=== PATIENT | male | born 1965 | race African-American/Black ===

== ENCOUNTER 2016-12-09 12:48 | Inpatient (IN) | payer OTHER ==
[2016-12-09 14:49] VITALS: BMI 22.3
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
[2016-12-09] MEDS ORDERED: MENTHOL/PHENOL 1 EACH UD MM PRN (17:18)
[2016-12-09] MEDS ORDERED: chlordiazePOXIDE HCL 25 MG CAPSULE PO PRN (17:18)
[2016-12-09] MEDS ORDERED: MAGNESIUM CITRATE 300 ML BOTTLE PO PRN (17:18)
[2016-12-09] MEDS ORDERED: NICOTINE POLACRILEX 2 MG GUM BC PRN (17:18)
[2016-12-09] MEDS ORDERED: MAGNESIUM HYDROX 2400MG/30ML ORAL SUSPENSION 30 ML CUP PO PRN (17:18)
[2016-12-09] MEDS ORDERED: ACETAMINOPHEN 325 MG TABLET (FP) PO PRN (17:18)
[2016-12-09] MEDS ORDERED: guaiFENesin/D-METHORPHAN HB 10 ML UNIT-DOSE CUPS PO PRN (17:18)
[2016-12-09] MEDS ORDERED: MAG HYDROX/AL HYDROX/SIMETH 30 ML UNIT-DOSE CUP PO PRN (17:18)
[2016-12-09] MEDS ORDERED: LOPERAMIDE HCL 2 MG CAPSULE PO PRN (17:18)
[2016-12-09] MEDS ORDERED: P-EPHED 60MG/TRIPROLIDI 2.5MG TABLET PO PRN (17:18)
[2016-12-09] MEDS ORDERED: ALBUTEROL SO4 18 GM HFA INHALER IH PRN (17:20)
[2016-12-09] MEDS ORDERED: ALBUTEROL SO4 2.5/IPRATROPIUM 0.5 INH SOL 3 ML VIAL.NEB. NEB PRN (17:29)
[2016-12-09] MEDS: THIAMINE HCL 100 MG TABLET (FP) PO SCH (22:33)
[2016-12-09] MEDS: chlordiazePOXIDE HCL 25 MG CAPSULE PO SCH (22:33)
[2016-12-09 23:27] LABS: URINE APPEARANCE SLCLOUDY; URINE BILIRUBIN NEGATIVE (NEGATIVE); URINE BLOOD NEGATIVE (NEGATIVE); URINE COLOR DKYELLOW; URINE GLUCOSE (UA) NEGATIVE (NEGATIVE); URINE KETONE NEGATIVE (NEGATIVE); URINE NITRITE NEGATIVE (NEGATIVE); URINE PROTEIN NEGATIVE (NEGATIVE); URINE UROBILINOGEN 4.0 E.U/dl mg/dL (0.2-1.0)
[2016-12-10] MEDS: chlordiazePOXIDE HCL 25 MG CAPSULE PO SCH ×4 (06:05→22:05)
[2016-12-10 10:16] LABS: MCHC 32.5 g/dl (32.0-35.9); MEAN CELL VOLUME 86.3 fl (80-96); MEAN PLT VOLUME 9.7 fl (7.5-11.1); PLATELET COUNT 135 K/MM3 (134-434); WHITE BLOOD COUNT 3.6 K/mm3 (4.0-10.0)
[2016-12-10 10:29] LABS: ALBUMIN 2.9 g/dl (3.4-5.0); ANION GAP 7 (8-16); BILIRUBIN,TOTAL 0.2 mg/dL (0.2-1.0); CALCIUM 8.1 mg/dL (8.5-10.1); CO2 27 mmol/L (21-32); CREATININE 1.1 mg/dL (0.7-1.3); GLUCOSE,RANDOM 103 mg/dL (74-106); SGOT/AST 27 U/L (15-37); SGPT/ALT 20 U/L (12-78); TOT PROT 7.6 g/dl (6.4-8.2)
[2016-12-10 10:30] LABS: ALK PHOS 91 U/L (45-117)
[2016-12-10] MEDS: NICOTINE 14 MG/24 HOURS TOPICAL PATCH TD SCH (11:20)
[2016-12-10] MEDS: PRENATAL VITAMINS W/ FOLIC ACID TABLET (FP) PO SCH (11:20)
[2016-12-10] MEDS ORDERED: FLU VACCINE QUAD 60 MCG/0.5 ML (MDV 17-18) IM ONE (12:00)
[2016-12-10 12:04] LABS: URINE LEUK ESTERASE Negative (NEGATIVE)
--- NOTE | 2016-12-10 14:36 | PN ---
S CIWA - CIWA Score Nausea/Vomitin-No Nausea/No Vomiting Muscle Tremors: 3 Anxiety: 4-Mod. Anxious/Guarded Agitation: 4-Moderately Restless Paroxysmal Sweats: 3 Orientation: 0-Oriented Tacttile Disturbances: 0-None Auditory Disturbances: 0-None Visual Disturbances: 0-None Headache: 0-None Present CIWA-Ar Total Score: 14 BHS Progress Note (SOAP) Subjective: Sweating,anxiety,tremors,restless,interrupted sleep. Objective: 12/10/16 14:34 Last Vital Signs Temp Pulse Resp BP Pulse Ox 97.9 F 106 H 18 117/69 12/10/16 06:00 12/10/16 06:00 12/10/16 06:00 12/10/16 06:00 Laboratory Tests 12/09/16 12/10/16 12/10/16 22:00 07:55 07:55 WBC 3.6 L RBC 4.62 Hgb 13.0 Hct 39.9 MCV 86.3 MCH 28.0 MCHC 32.5 RDW 14.0 Plt Count 135 D MPV 9.7 D Sodium 143 Potassium 3.9 Chloride 109 H Carbon Dioxide 27 Anion Gap 7 L BUN 17 Creatinine 1.1 D Creat Clearance w eGFR > 60 Random Glucose 103 Calcium 8.1 L Total Bilirubin 0.2 D AST 27 D ALT 20 D Alkaline Phosphatase 91 Total Protein 7.6 Albumin 2.9 L Urine Color Dkyellow Urine Appearance Slcloudy Urine pH 6.0 Ur Specific [place] 1.030 Urine Protein Negative Urine Glucose (UA) Negative Urine Ketones Negative Urine Blood Negative Urine Nitrite Negative Urine Bilirubin Negative Urine Urobilinogen 4.0 e.u/dl Ur Leukocyte Esterase Negative Valproic Acid RPR Titer 12/10/16 12/10/16 07:55 07:55 WBC RBC Hgb Hct MCV MCH MCHC RDW Plt Count MPV Sodium Potassium Chloride Carbon Dioxide Anion Gap BUN Creatinine Creat Clearance w eGFR Random Glucose Calcium Total Bilirubin AST ALT Alkaline Phosphatase Total Protein Albumin Urine Color Urine Appearance Urine pH Ur Specific [place] Urine Protein Urine Glucose (UA) Urine Ketones Urine Blood Urine Nitrite Urine Bilirubin Urine Urobilinogen Ur Leukocyte Esterase Valproic Acid 16.450 L RPR Titer Nonreactive labs noted,psych to f/u on valproic acid level Assessment: 12/10/16 14:36 Withdrawal sx. Plan: Continue detox
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
[2016-12-10] MEDS: DIVALPROEX SODIUM 500 MG TABLET E.C. PO SCH (22:05)
[2016-12-10] MEDS: THIAMINE HCL 100 MG TABLET (FP) PO SCH (22:05)
[2016-12-11] MEDS: chlordiazePOXIDE HCL 25 MG CAPSULE PO SCH ×3 (06:10→18:13)
[2016-12-11] MEDS: IBUPROFEN 400 MG TABLET (FP) PO PRN (06:10)
[2016-12-11] MEDS: PRENATAL VITAMINS W/ FOLIC ACID TABLET (FP) PO SCH (10:11)
[2016-12-11] MEDS: DIVALPROEX SODIUM 500 MG TABLET E.C. PO SCH ×2 (10:11→22:40)
[2016-12-11] MEDS: NICOTINE 14 MG/24 HOURS TOPICAL PATCH TD SCH (10:12)
--- NOTE | 2016-12-11 14:15 | PN ---
S CIWA - CIWA Score Nausea/Vomitin-No Nausea/No Vomiting Muscle Tremors: 3 Anxiety: 3 Agitation: 3 Paroxysmal Sweats: 3 Orientation: 1-Uncertain about Date Tacttile Disturbances: 0-None Auditory Disturbances: 0-None Visual Disturbances: 0-None Headache: 0-None Present CIWA-Ar Total Score: 13 BHS Progress Note (SOAP) Subjective: Anxiety,tremors,sweating,interrupted sleep,restless Objective: 12/11/16 14:14 Vital Signs - 8 hr 12/11/16 12/11/16 07:18 10:00 Temperature 98.1 F 97.6 F Pulse Rate 96 H Respiratory 18 Rate Blood Pressure 114/79 Laboratory Tests 12/09/16 12/10/16 12/10/16 22:00 07:55 07:55 WBC 3.6 L RBC 4.62 Hgb 13.0 Hct 39.9 MCV 86.3 MCH 28.0 MCHC 32.5 RDW 14.0 Plt Count 135 D MPV 9.7 D Sodium 143 Potassium 3.9 Chloride 109 H Carbon Dioxide 27 Anion Gap 7 L BUN 17 Creatinine 1.1 D Creat Clearance w eGFR > 60 Random Glucose 103 Calcium 8.1 L Total Bilirubin 0.2 D AST 27 D ALT 20 D Alkaline Phosphatase 91 Total Protein 7.6 Albumin 2.9 L Urine Color Dkyellow Urine Appearance Slcloudy Urine pH 6.0 Ur Specific [place] 1.030 Urine Protein Negative Urine Glucose (UA) Negative Urine Ketones Negative Urine Blood Negative Urine Nitrite Negative Urine Bilirubin Negative Urine Urobilinogen 4.0 e.u/dl Ur Leukocyte Esterase Negative Valproic Acid RPR Titer 12/10/16 12/10/16 07:55 07:55 WBC RBC Hgb Hct MCV MCH MCHC RDW Plt Count MPV Sodium Potassium Chloride Carbon Dioxide Anion Gap BUN Creatinine Creat Clearance w eGFR Random Glucose Calcium Total Bilirubin AST ALT Alkaline Phosphatase Total Protein Albumin Urine Color Urine Appearance Urine pH Ur Specific [place] Urine Protein Urine Glucose (UA) Urine Ketones Urine Blood Urine Nitrite Urine Bilirubin Urine Urobilinogen Ur Leukocyte Esterase Valproic Acid 16.450 L RPR Titer Nonreactive labs noted Assessment: 12/11/16 14:15 Withdrawal sx. Plan: Continue detox
[2016-12-11] MEDS: chlordiazePOXIDE 5 MG CAPSULE PO SCH (22:40)
[2016-12-11] MEDS: THIAMINE HCL 100 MG TABLET (FP) PO SCH (22:40)
[2016-12-12] MEDS: IBUPROFEN 400 MG TABLET (FP) PO PRN (02:58)
[2016-12-12] MEDS: chlordiazePOXIDE 5 MG CAPSULE PO SCH ×3 (07:13→19:24)
--- NOTE | 2016-12-12 10:58 | PN ---
BHS Progress Note (SOAP) Subjective: KIANA tired groggy sweats Objective: 12/12/16 10:57 Vital Signs Temperature 97 F L 12/12/16 08:03 Pulse Rate 88 12/12/16 08:03 Respiratory Rate 18 12/12/16 08:03 Blood Pressure 117/53 12/12/16 08:03 O2 Sat by Pulse Oximetry (%) [id number] ambulating no acute distress Assessment: 12/12/16 10:57 mild withdrawal sx Plan: hold am librium continue detox later increase fluids d/c in am
[2016-12-12] MEDS: NICOTINE 14 MG/24 HOURS TOPICAL PATCH TD SCH (13:02)
[2016-12-12] MEDS: DIVALPROEX SODIUM 500 MG TABLET E.C. PO SCH ×2 (13:02→22:41)
[2016-12-12] MEDS: PRENATAL VITAMINS W/ FOLIC ACID TABLET (FP) PO SCH (13:02)
[2016-12-12] MEDS: chlordiazePOXIDE HCL 10 MG CAPSULE PO SCH (22:41)
[2016-12-12] MEDS: THIAMINE HCL 100 MG TABLET (FP) PO SCH (22:41)
[2016-12-13] MEDS: IBUPROFEN 400 MG TABLET (FP) PO PRN (03:53)
[2016-12-13] MEDS: chlordiazePOXIDE HCL 10 MG CAPSULE PO SCH (05:20)
--- NOTE | 2016-12-13 07:45 | EKG ---
Test Reason : Blood Pressure : / mmHG Vent. Rate : 053 BPM Atrial Rate : 053 BPM P-R Int : 144 ms QRS Dur : 090 ms QT Int : 420 ms P-R-T Axes : 080 -25 033 degrees QTc Int : 394 ms SINUS BRADYCARDIA OTHERWISE NORMAL ECG NO PREVIOUS ECGS AVAILABLE Confirmed by CYRUS SALAZAR, SARINA ([id number]) on 12/13/2016 7:44:43 AM Referred By: Cristine Bledsoe Confirmed By:SARINA BRIDGES MD
--- NOTE | 2016-12-13 08:33 | DS ---
[facility] Detox Discharge Summary Admission Date: 12/09/16 Discharge Date: 12/13/16 - History Present History: Alcohol Dependence, Cocaine Dependence - Physical Exam Results Vital Signs: Vital Signs Temperature 96.3 F L 12/13/16 06:39 Pulse Rate 72 12/13/16 06:39 Respiratory Rate 18 12/13/16 06:39 Blood Pressure 111/74 12/13/16 06:39 O2 Sat by Pulse Oximetry (%) - Treatment Hospital Course: Detox Protocol Followed, Detoxed Safely, Responded well, Discharged Condition Good, Rehab Referral Accepted - Medication Discharge Medications: Ambulatory Orders Divalproex [Depakote -] 500 mg PO BID #60 tablet.ec 12/29/14 Darunavir Ethanolate [Prezista] 600 mg PO DAILY 10/25/15 Emtricitabine/Tenofovir [Truvada] 1 tab PO DAILY 10/25/15 Ritonavir [Norvir] 100 mg PO DAILY 10/25/15 Divalproex [Depakote -] 500 mg PO BID #60 tablet.ec 12/12/16 - Diagnosis (1) Alcohol dependence with uncomplicated withdrawal Current Visit: Yes Status: Chronic (2) Cocaine dependence, uncomplicated Current Visit: Yes Status: Chronic (3) Nicotine dependence Current Visit: Yes Status: Chronic Qualifiers: Nicotine product type: cigarettes Substance use status: uncomplicated Qualified Code(s): F17.210 - Nicotine dependence, cigarettes, uncomplicated; F17.210 - Nicotine dependence, cigarettes, uncomplicated (4) Weight loss Current Visit: Yes Status: Acute (5) Bipolar II disorder Current Visit: Yes Status: Chronic (6) HIV (human immunodeficiency virus infection) Current Visit: Yes Status: Chronic (7) Hearing loss of both ears Current Visit: Yes Status: Chronic Qualifiers: Hearing loss type: sensorineural Qualified Code(s): H90.3 - Sensorineural hearing loss, bilateral; H90.3 - Sensorineural hearing loss, bilateral (8) History of latent syphilis Current Visit: Yes Status: Chronic (9) Drug-induced mood disorder Current Visit: Yes Status: Suspected (10) Alcohol dependence, episodic drinking behavior Current Visit: No Status: Acute (11) Cocaine dependence Current Visit: Yes Status: Chronic Qualifiers: Substance use status: uncomplicated Qualified Code(s): F14.20 - Cocaine dependence, uncomplicated; F14.20 - Cocaine dependence, uncomplicated; F14.20 - Cocaine dependence, uncomplicated (12) Depression Current Visit: No Status: Acute (13) Syncope Current Visit: No Status: Acute - AMA Did Patient Leave Against Medical Advice: No
[2016-12-13 09:23] VITALS: BP 108/63; PULSE 86; TEMP 96
== END 2016-12-13 10:36 | disposition home or self-care (01) | DRG 774 ==
LOC: YASAS 12:48 → Y6N 17:57
PROVIDERS: ADMIT Internal Medicine; ATTEND Internal Medicine
PROC: HZ2ZZZZ Detoxification Services for Substance Abuse Treatment (ICD-10-PCS; principal; 2016-12-09)
DX: F10.230 Alcohol dependence with withdrawal, uncomplicated (principal); F14.20 Cocaine dependence, uncomplicated; F17.210 Nicotine dependence, cigarettes, uncomplicated; F31.81 Bipolar II disorder; F19.24 Other psychoactive substance dependence with psychoactive substance-induced mood disorder; F32.9 Major depressive disorder, single episode, unspecified; Z21 Asymptomatic human immunodeficiency virus [HIV] infection status; H90.3 Sensorineural hearing loss, bilateral; Z87.438 Personal history of other diseases of male genital organs; Z86.79 Personal history of other diseases of the circulatory system; Z87.898 Personal history of other specified conditions
CPT/HCPCS: 36415; 80053; 80164; 81003; 85027; 86593; 90688; 93005; 93010; G0008

== ENCOUNTER 2017-10-24 15:31 | Inpatient (IN) | payer OTHER ==
[2017-10-24 16:51] VITALS: BMI 19.9
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
[2017-10-24] MEDS ORDERED: MAGNESIUM CITRATE 300 ML BOTTLE PO PRN (17:12)
[2017-10-24] MEDS ORDERED: MAG HYDROX/AL HYDROX/SIMETH 30 ML UNIT-DOSE CUP PO PRN (17:12)
[2017-10-24] MEDS ORDERED: ACETAMINOPHEN 325 MG TABLET (FP) PO PRN (17:12)
[2017-10-24] MEDS ORDERED: IBUPROFEN 400 MG TABLET (FP) PO PRN (17:12)
[2017-10-24] MEDS ORDERED: MAGNESIUM HYDROX 2400MG/30ML ORAL SUSPENSION 30 ML CUP PO PRN (17:12)
[2017-10-24] MEDS ORDERED: ALBUTEROL SO4 0.083% IH SOL 2.5 MG/3 ML VIAL.NEB. NEB PRN (17:15)
[2017-10-24] MEDS ORDERED: ALBUTEROL SO4 8 GM HFA INHALER IH PRN (17:15)
[2017-10-24] MEDS ORDERED: chlordiazePOXIDE HCL 25 MG CAPSULE PO ONE (20:58)
[2017-10-24] MEDS: DIVALPROEX SODIUM 500 MG TABLET E.C. PO SCH (21:17)
[2017-10-24] MEDS: THIAMINE HCL 100 MG TABLET (FP) PO SCH (21:18)
[2017-10-24] MEDS ORDERED: MELATONIN 5 MG TABLETS PO PRN (22:00)
[2017-10-25] MEDS: chlordiazePOXIDE HCL 25 MG CAPSULE PO SCH ×4 (00:10→18:16)
[2017-10-25 02:53] LABS: URINE APPEARANCE CLEAR; URINE BILIRUBIN NEGATIVE (<2.0 mg/dL); URINE COLOR YELLOW; URINE GLUCOSE (UA) NEGATIVE (NEGATIVE); URINE KETONE NEGATIVE (NEGATIVE); URINE LEUK ESTERASE NEGATIVE (NEGATIVE); URINE NITRITE NEGATIVE (NEGATIVE); URINE UROBILINOGEN NEGATIVE mg/dL (0.2-1.0)
[2017-10-25 03:10] LABS: URINE PROTEIN 1+ (NEGATIVE)
[2017-10-25 03:12] LABS: EPI CELLS RARE /HPF (FEW); URINE BACTERIA FEW /hpf (NONE SEEN); URINE MUCUS RARE
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
[2017-10-25 10:19] LABS: HEMATOCRIT 34.2 % (35.4-49); HEMOGLOBIN 10.9 GM/dL (11.7-16.9); MCH 26.8 pg (25.7-33.7); MEAN CELL VOLUME 83.8 fl (80-96); MEAN PLT VOLUME 8.8 fl (7.5-11.1); PLATELET COUNT 206 K/MM3 (134-434); RBC 4.08 M/mm3 (4.00-5.60); RDW 14.2 % (11.9-15.9); WHITE BLOOD COUNT 3.7 K/mm3 (4.0-10.0)
[2017-10-25] MEDS: DIVALPROEX SODIUM 500 MG TABLET E.C. PO SCH ×2 (10:25→22:38)
[2017-10-25] MEDS: PRENATAL VITAMINS W/ FOLIC ACID TABLET (FP) PO SCH (10:27)
[2017-10-25 10:35] LABS: CHLORIDE 108 mmol/L (98-107); POTASSIUM 4.1 mmol/L (3.5-5.1); SODIUM 140 mmol/L (136-145)
[2017-10-25 11:02] LABS: ALBUMIN 2.8 g/dl (3.4-5.0); ALK PHOS 82 U/L (45-117); ANION GAP 5 MMOL/L (8-16); BILIRUBIN,TOTAL 0.2 mg/dL (0.2-1); BLOOD UREA NITROGEN 11 mg/dL (7-18); CO2 27 mmol/L (21-32); CREATININE 1.2 mg/dL (0.55-1.3); GLUCOSE,RANDOM 106 mg/dL (74-106); SGOT/AST 20 U/L (15-37); SGPT/ALT 13 U/L (13-61)
--- NOTE | 2017-10-25 11:55 | PN ---
S CIWA - CIWA Score Nausea/Vomitin-Mild Nausea/No Vomiting Muscle Tremors: 2 Anxiety: 2 Agitation: 2 Paroxysmal Sweats: 3 Orientation: 0-Oriented Tacttile Disturbances: 2-Mild Itch/Numbness/Burn Auditory Disturbances: 0-None Visual Disturbances: 0-None Headache: 0-None Present CIWA-Ar Total Score: 12 BHS Progress Note (SOAP) Subjective: interrupted sleep, sweats, shakes ,achy, feet hurt(neuropathy). Objective: 10/25/17 11:53 Vital Signs Temperature 98.4 F 10/25/17 09:30 Pulse Rate 89 10/25/17 09:30 Respiratory Rate 20 10/25/17 09:30 Blood Pressure 132/82 10/25/17 09:30 O2 Sat by Pulse Oximetry (%) Laboratory Tests 10/24/17 10/25/17 10/25/17 22:57 07:00 07:00 WBC 3.7 L RBC 4.08 Hgb 10.9 L Hct 34.2 L MCV 83.8 MCH 26.8 MCHC 32.0 RDW 14.2 Plt Count 206 D MPV 8.8 Sodium 140 Potassium 4.1 Chloride 108 H Carbon Dioxide 27 Anion Gap 5 L BUN 11 Creatinine 1.2 Creat Clearance w eGFR > 60 Random Glucose 106 Calcium 8.0 L Total Bilirubin 0.2 AST 20 ALT 13 Alkaline Phosphatase 82 Total Protein 8.0 Albumin 2.8 L Urine Color Yellow Urine Appearance Clear Urine pH 6.0 Ur Specific [place] 1.020 Urine Protein 1+ H Urine Glucose (UA) Negative Urine Ketones Negative Urine Blood Negative Urine Nitrite Negative Urine Bilirubin Negative Urine Urobilinogen Negative Ur Leukocyte Esterase Negative Urine WBC (Auto) 9 Urine RBC (Auto) 3 Ur Epithelial Cells Rare Urine Bacteria Few Urine Mucus Rare pt aox3 in nad lying in bed hard of hearing Assessment: 10/25/17 11:54 withdrawal sx's neuropathy Plan: cont. detox increase fluids f/up pending labs
--- NOTE | 2017-10-25 12:59 | EKG ---
Test Reason : Blood Pressure : / mmHG Vent. Rate : 061 BPM Atrial Rate : 061 BPM P-R Int : 158 ms QRS Dur : 084 ms QT Int : 420 ms P-R-T Axes : 087 -08 035 degrees QTc Int : 422 ms NORMAL SINUS RHYTHM NORMAL ECG WHEN COMPARED WITH ECG OF 09-DEC-2016 21:46, NO SIGNIFICANT CHANGE WAS FOUND Confirmed by RENEE TRIPP MD ([id number]) on 10/25/2017 12:58:54 PM Referred By: Confirmed By:RENEE TRIPP MD
[2017-10-25] MEDS: THIAMINE HCL 100 MG TABLET (FP) PO SCH (22:39)
[2017-10-25] MEDS ORDERED: chlordiazePOXIDE HCL 25 MG CAPSULE PO SCH (23:00)
[2017-10-25] MEDS: chlordiazePOXIDE 5 MG CAPSULE PO SCH (23:05)
[2017-10-26] MEDS: chlordiazePOXIDE 5 MG CAPSULE PO SCH ×3 (06:42→17:40)
[2017-10-26] MEDS: PRENATAL VITAMINS W/ FOLIC ACID TABLET (FP) PO SCH (10:58)
[2017-10-26] MEDS: DIVALPROEX SODIUM 500 MG TABLET E.C. PO SCH ×2 (10:58→22:20)
--- NOTE | 2017-10-26 12:37 | PN ---
[facility] CIWA - CIWA Score Nausea/Vomitin-No Nausea/No Vomiting Muscle Tremors: 3 Anxiety: 4-Mod. Anxious/Guarded Agitation: 3 Paroxysmal Sweats: 1-Minimal Palms Moist Orientation: 0-Oriented Tacttile Disturbances: 1-Very Mild Itch/Numbness Auditory Disturbances: 0-None Visual Disturbances: 0-None Headache: 0-None Present CIWA-Ar Total Score: 12 BHS Progress Note (SOAP) Subjective: sweat tremor restlessness trouble sleep at night Objective: 10/26/17 12:35 Vital Signs Temperature 96.4 F L 10/26/17 09:54 Pulse Rate 71 10/26/17 09:54 Respiratory Rate 18 10/26/17 09:54 Blood Pressure 120/71 10/26/17 09:54 O2 Sat by Pulse Oximetry (%) Laboratory Last Values WBC 3.7 K/mm3 (4.0-10.0) L 10/25/17 07:00 RBC 4.08 M/mm3 (4.00-5.60) 10/25/17 07:00 Hgb 10.9 GM/dL (11.7-16.9) L 10/25/17 07:00 Hct 34.2 % (35.4-49) L 10/25/17 07:00 MCV 83.8 fl (80-96) 10/25/17 07:00 MCH 26.8 pg (25.7-33.7) 10/25/17 07:00 MCHC 32.0 g/dl (32.0-35.9) 10/25/17 07:00 RDW 14.2 % (11.9-15.9) 10/25/17 07:00 Plt Count 206 K/MM3 (134-434) D 10/25/17 07:00 MPV 8.8 fl (7.5-11.1) 10/25/17 07:00 Sodium 140 mmol/L (136-145) 10/25/17 07:00 Potassium 4.1 mmol/L (3.5-5.1) 10/25/17 07:00 Chloride 108 mmol/L (98-107) H 10/25/17 07:00 Carbon Dioxide 27 mmol/L (21-32) 10/25/17 07:00 Anion Gap 5 MMOL/L (8-16) L 10/25/17 07:00 BUN 11 mg/dL (7-18) 10/25/17 07:00 Creatinine 1.2 mg/dL (0.55-1.3) 10/25/17 07:00 Creat Clearance w eGFR > 60 (>60) 10/25/17 07:00 Random Glucose 106 mg/dL (74-106) 10/25/17 07:00 Calcium 8.0 mg/dL (8.5-10.1) L 10/25/17 07:00 Total Bilirubin 0.2 mg/dL (0.2-1) 10/25/17 07:00 AST 20 U/L (15-37) 10/25/17 07:00 ALT 13 U/L (13-61) 10/25/17 07:00 Alkaline Phosphatase 82 U/L (45-117) 10/25/17 07:00 Total Protein 8.0 g/dl (6.4-8.2) 10/25/17 07:00 Albumin 2.8 g/dl (3.4-5.0) L 10/25/17 07:00 Urine Color Yellow 10/24/17 22:57 Urine Appearance Clear 10/24/17 22:57 Urine pH 6.0 (5.0-8.0) 10/24/17 22:57 Ur Specific [place] 1.020 (1.001-1.035) 10/24/17 22:57 Urine Protein 1+ (NEGATIVE) H 10/24/17 22:57 Urine Glucose (UA) Negative (NEGATIVE) 10/24/17 22:57 Urine Ketones Negative (NEGATIVE) 10/24/17 22:57 Urine Blood Negative (NEGATIVE) 10/24/17 22:57 Urine Nitrite Negative (NEGATIVE) 10/24/17 22:57 Urine Bilirubin Negative (<2.0 mg/dL) 10/24/17 22:57 Urine Urobilinogen Negative mg/dL (0.2-1.0) 10/24/17 22:57 Ur Leukocyte Esterase Negative (NEGATIVE) 10/24/17 22:57 Urine WBC (Auto) 9 /hpf (3-5) 10/24/17 22:57 Urine RBC (Auto) 3 /hpf (0-3) 10/24/17 22:57 Ur Epithelial Cells Rare /HPF (FEW) 10/24/17 22:57 Urine Bacteria Few /hpf (NONE SEEN) 10/24/17 22:57 Urine Mucus Rare 10/24/17 22:57 RPR Titer Nonreactive (NONREACTIVE) 10/25/17 07:00 lab noted repeat ua Assessment: 10/26/17 12:36 withdrawal sx Plan: continue detox repeat ua
[2017-10-26] MEDS: THIAMINE HCL 100 MG TABLET (FP) PO SCH (22:20)
[2017-10-26] MEDS ORDERED: chlordiazePOXIDE 5 MG CAPSULE PO SCH (23:00)
[2017-10-27] MEDS ORDERED: chlordiazePOXIDE HCL 10 MG CAPSULE PO SCH (04:39)
[2017-10-27 09:19] VITALS: BP 114/72; PULSE 103; TEMP 99.7
[2017-10-27] MEDS: DIVALPROEX SODIUM 500 MG TABLET E.C. PO SCH (09:24)
[2017-10-27] MEDS: PRENATAL VITAMINS W/ FOLIC ACID TABLET (FP) PO SCH (09:25)
[2017-10-27 10:17] LABS: URINE APPEARANCE CLEAR; URINE BILIRUBIN NEGATIVE (<2.0 mg/dL); URINE COLOR LTYELLOW; URINE GLUCOSE (UA) NEGATIVE (NEGATIVE); URINE KETONE NEGATIVE (NEGATIVE); URINE LEUK ESTERASE NEGATIVE (NEGATIVE); URINE NITRITE NEGATIVE (NEGATIVE); URINE PROTEIN NEGATIVE (NEGATIVE); URINE UROBILINOGEN NEGATIVE mg/dL (0.2-1.0)
--- NOTE | 2017-10-27 11:36 | DS ---
[facility] Detox Discharge Summary Admission Date: 10/24/17 Discharge Date: 10/27/17 - History Present History: Alcohol Dependence - Physical Exam Results Vital Signs: Vital Signs Temperature 99.7 F H 10/27/17 09:18 Pulse Rate 103 H 10/27/17 09:18 Respiratory Rate 18 10/27/17 09:18 Blood Pressure 114/72 10/27/17 09:18 O2 Sat by Pulse Oximetry (%) Pertinent Admission Physical Exam Findings: PATIENT ALERT AND ORIENTED. IN NAD. SKIN WARM AND DRY. DENIES SI/HI. REPEAT UA RESULTS PENDING. PATIENT STATE HE CANNOT WAIT FOR RESULTS. PATIENT ADVISED TO FOLLOW UP WITH PCP FOR MEDICAL CARE. ADVISED TO ATTEND GROUP MEETINGS TO PREVENT RELAPSE. D/C INSTRUCTIONS PROVIDED TO PATIENT BY STAFF. TEMPERATURE REFLECT PATIENT INTAKE OF COFFEE. Vital Signs Temperature 99.7 F H 10/27/17 09:18 Pulse Rate 103 H 10/27/17 09:18 Respiratory Rate 18 10/27/17 09:18 Blood Pressure 114/72 10/27/17 09:18 O2 Sat by Pulse Oximetry (%) - Treatment Hospital Course: Detox Protocol Followed, Detoxed Safely, Responded well, Discharged Condition Good - Medication Discharge Medications: Ambulatory Orders Darunavir Ethanolate [Prezista] 600 mg PO DAILY 10/25/15 Emtricitabine/Tenofovir [Truvada] 1 tab PO DAILY 10/25/15 Ritonavir [Norvir] 100 mg PO DAILY 10/25/15 Divalproex [Depakote -] 500 mg PO BID #60 tablet.ec 12/12/16 Divalproex [Depakote -] 500 mg PO BID 7 Days #14 tablet.ec 10/27/17 - AMA Did Patient Leave Against Medical Advice: No
== END 2017-10-27 09:32 | disposition home or self-care (01) | DRG 774 ==
LOC: YASAS 15:31 → Y6N 17:47
PROC: HZ2ZZZZ Detoxification Services for Substance Abuse Treatment (ICD-10-PCS; principal; 2017-10-24)
DX: F10.20 Alcohol dependence, uncomplicated (principal); F14.20 Cocaine dependence, uncomplicated; F17.210 Nicotine dependence, cigarettes, uncomplicated; F31.81 Bipolar II disorder; Z21 Asymptomatic human immunodeficiency virus [HIV] infection status; J45.909 Unspecified asthma, uncomplicated; H90.3 Sensorineural hearing loss, bilateral; Z86.19 Personal history of other infectious and parasitic diseases
CPT/HCPCS: 36415; 80053; 81003; 81015; 85027; 86593; 93005; 93010

== ENCOUNTER 2019-02-13 11:15 | Inpatient (IN) | payer OTHER ==
[2019-02-13 12:40] VITALS: BMI 20.7
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
[2019-02-13] MEDS ORDERED: IBUPROFEN 400 MG TABLET (FP) PO PRN (14:04)
[2019-02-13] MEDS ORDERED: MAGNESIUM HYDROX 2400MG/30ML ORAL SUSPENSION 30 ML CUP PO PRN (14:04)
[2019-02-13] MEDS ORDERED: hydrOXYzine PAMOATE 25 MG CAPSULE (FP) PO PRN (14:04)
[2019-02-13] MEDS ORDERED: MENTHOL/PHENOL 1 EACH UD MM PRN (14:04)
[2019-02-13] MEDS ORDERED: ONDANSETRON *ODT* 4 MG TABLET SL PRN (14:04)
[2019-02-13] MEDS ORDERED: MAGNESIUM CITRATE 300 ML BOTTLE PO PRN (14:04)
[2019-02-13] MEDS ORDERED: BISMUTH SUBSALICYLATE 262 MG/15 ML BTL PO PRN (14:04)
[2019-02-13] MEDS ORDERED: ACETAMINOPHEN 325 MG TABLET (FP) PO PRN ×2 (14:04)
[2019-02-13] MEDS ORDERED: MELATONIN 5 MG TABLETS PO PRN (14:04)
[2019-02-13] MEDS ORDERED: METHOCARBAMOL 500 MG TABLET PO PRN (14:04)
--- NOTE | 2019-02-13 14:11 | PN ---
[facility] Progress Note Note: pt asked the owner operator tanker truck driver to take him to the pharmacy to cotton picking machine operator his HIV medication Genvoya but unable. Pt pharmacy confirmed his current HIV medication. Order for genvoya prescribed
[2019-02-13 17:39] LABS: HEMATOCRIT 32.1 % (35.4-49); HEMOGLOBIN 10.4 GM/dL (11.7-16.9); MCH 27.3 pg (25.7-33.7); MCHC 32.3 g/dl (32.0-35.9); MEAN CELL VOLUME 84.2 fl (80-96); MEAN PLT VOLUME 9.5 fl (7.5-11.1); RBC 3.81 M/mm3 (4.00-5.60); RDW 14.9 % (11.9-15.9); WHITE BLOOD COUNT 4.7 K/mm3 (4.0-10.0)
[2019-02-13 17:45] LABS: ALBUMIN 3.3 g/dl (3.4-5.0); BILIRUBIN,TOTAL 0.1 mg/dL (0.2-1); BLOOD UREA NITROGEN 28.5 mg/dL (7-18); CALCIUM 8.1 mg/dL (8.5-10.1); POTASSIUM 3.6 mmol/L (3.5-5.1); TOT PROT 9.3 g/dl (6.4-8.2)
[2019-02-13] MEDS: chlordiazePOXIDE HCL 25 MG CAPSULE PO SCH ×2 (18:31→23:06)
[2019-02-13] MEDS: ATOVAQUONE 750 MG/5 ML (UNIT-DOSE PACKAGING) PO SCH (18:32)
[2019-02-13] MEDS ORDERED: ATOVAQUONE 750 MG/5 ML (UNIT-DOSE PACKAGING) PO SCH (22:00)
[2019-02-13] MEDS: THIAMINE HCL 100 MG TABLET (FP) PO SCH (23:06)
[2019-02-13] MEDS: AMMONIUM LACTATE 12% LOTION 225 GM BOTTLE TP SCH (23:14)
[2019-02-14] MEDS: chlordiazePOXIDE HCL 25 MG CAPSULE PO SCH ×4 (06:01→22:52)
--- NOTE | 2019-02-14 09:43 | PN ---
S CIWA - CIWA Score Nausea/Vomitin-Mild Nausea/No Vomiting Muscle Tremors: 4-Moderate,w/Arms Extend Anxiety: 3 Agitation: 1-Slight > Activity Paroxysmal Sweats: 2 Orientation: 1-Uncertain about Date Tacttile Disturbances: 1-Very Mild Itch/Numbness Auditory Disturbances: 0-None Visual Disturbances: 0-None Headache: 2-Mild CIWA-Ar Total Score: 15 BHS Progress Note (SOAP) Subjective: 53 years old male admitted on 02/13/19 for alcohol withdrawal sx management treating with librium detox regimen ate breakfast ambulating with wheelchair due to neuropathy and deformity of of feet ate breakfast feeling tired resting on bed limited conversation with staff Objective: 02/14/19 09:42 Vital Signs Temperature 98.0 F 02/14/19 09:19 Pulse Rate 89 02/14/19 09:19 Respiratory Rate 18 02/14/19 09:19 Blood Pressure 129/75 02/14/19 09:19 O2 Sat by Pulse Oximetry (%) Laboratory Last Values WBC 4.7 K/mm3 (4.0-10.0) 02/13/19 14:00 RBC 3.81 M/mm3 (4.00-5.60) L 02/13/19 14:00 Hgb 10.4 GM/dL (11.7-16.9) L 02/13/19 14:00 Hct 32.1 % (35.4-49) L 02/13/19 14:00 MCV 84.2 fl (80-96) 02/13/19 14:00 MCH 27.3 pg (25.7-33.7) 02/13/19 14:00 MCHC 32.3 g/dl (32.0-35.9) 02/13/19 14:00 RDW 14.9 % (11.9-15.9) 02/13/19 14:00 Plt Count TNP 02/13/19 14:00 MPV 9.5 fl (7.5-11.1) 02/13/19 14:00 Platelet Comment 02/13/19 14:00 Sodium 141 mmol/L (136-145) 02/13/19 14:00 Potassium 3.6 mmol/L (3.5-5.1) 02/13/19 14:00 Chloride 109 mmol/L (98-107) H 02/13/19 14:00 Carbon Dioxide 25 mmol/L (21-32) 02/13/19 14:00 Anion Gap 7 MMOL/L (8-16) L 02/13/19 14:00 BUN 28.5 mg/dL (7-18) H 02/13/19 14:00 Creatinine 2.0 mg/dL (0.55-1.3) H 02/13/19 14:00 Est GFR (CKD-EPI)AfAm 42.29 02/13/19 14:00 Est GFR (CKD-EPI)NonAf 36.49 02/13/19 14:00 Random Glucose 97 mg/dL (74-106) 02/13/19 14:00 Calcium 8.1 mg/dL (8.5-10.1) L 02/13/19 14:00 Total Bilirubin 0.1 mg/dL (0.2-1) L 02/13/19 14:00 AST 25 U/L (15-37) 02/13/19 14:00 ALT 17 U/L (13-61) 02/13/19 14:00 Alkaline Phosphatase 100 U/L (45-117) 02/13/19 14:00 Total Protein 9.3 g/dl (6.4-8.2) H 02/13/19 14:00 Albumin 3.3 g/dl (3.4-5.0) L 02/13/19 14:00 RPR Titer Nonreactive (NONREACTIVE) 02/13/19 14:00 lab noted Assessment: 02/14/19 09:43 alcohol withdrawal sx Plan: librium regimen
[2019-02-14] MEDS: PRENATAL VITAMINS W/ FOLIC ACID TABLET (FP) PO SCH (10:17)
[2019-02-14] MEDS: ALBUTEROL SO4 8 GM HFA INHALER IH PRN (10:18)
[2019-02-14] MEDS: NICOTINE 14 MG/24 HOURS TOPICAL PATCH TD SCH (10:19)
[2019-02-14] MEDS: AMMONIUM LACTATE 12% LOTION 225 GM BOTTLE TP SCH ×2 (10:20→22:52)
[2019-02-14] MEDS: ELVITEG/COB/EMTRI/TENOF (GENVOYA) TABLET (NF) PO SCH (10:20)
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
[2019-02-14] MEDS: ATOVAQUONE 750 MG/5 ML (UNIT-DOSE PACKAGING) PO SCH (17:05)
[2019-02-14] MEDS: THIAMINE HCL 100 MG TABLET (FP) PO SCH (22:52)
[2019-02-15] MEDS: ATOVAQUONE 750 MG/5 ML (UNIT-DOSE PACKAGING) PO SCH ×3 (00:43→17:37)
[2019-02-15] MEDS: chlordiazePOXIDE HCL 25 MG CAPSULE PO SCH ×5 (06:57→22:20)
--- NOTE | 2019-02-15 09:47 | PN ---
[facility] CIWA - CIWA Score Nausea/Vomitin-Mild Nausea/No Vomiting Muscle Tremors: 2 Anxiety: 2 Agitation: 2 Paroxysmal Sweats: 1-Minimal Palms Moist Orientation: 0-Oriented Tacttile Disturbances: 0-None Auditory Disturbances: 0-None Visual Disturbances: 0-None Headache: 1-Very Mild CIWA-Ar Total Score: 9 BHS Progress Note (SOAP) Subjective: here for alcohol detox and cocaine use O: Vital Signs - 24 hr 02/14/19 02/14/19 02/15/19 17:44 22:31 03:30 Temperature 97.8 F 97.7 F Pulse Rate 79 91 H Respiratory 18 16 18 Rate Blood Pressure 126/67 117/80 02/15/19 02/15/19 05:48 09:10 Temperature 99.4 F 98.3 F Pulse Rate 70 74 Respiratory 16 16 Rate Blood Pressure 132/77 132/77 Laboratory Tests 02/13/19 02/13/19 02/13/19 14:00 14:00 14:00 WBC 4.7 RBC 3.81 L Hgb 10.4 L Hct 32.1 L MCV 84.2 MCH 27.3 MCHC 32.3 RDW 14.9 Plt Count TNP MPV 9.5 Platelet Comment Sodium 141 Potassium 3.6 Chloride 109 H Carbon Dioxide 25 Anion Gap 7 L BUN 28.5 H Creatinine 2.0 H Est GFR (CKD-EPI)AfAm 42.29 Est GFR (CKD-EPI)NonAf 36.49 Random Glucose 97 Calcium 8.1 L Total Bilirubin 0.1 L AST 25 ALT 17 Alkaline Phosphatase 100 Total Protein 9.3 H Albumin 3.3 L RPR Titer Nonreactive anemia low GFR low albumin a/p: alcohol detox- continue detox protocol pt has HIV and low GFR- could be the cause of anemia Low GFR could be due to dehydration or due to HIV pt on Genvoya for HIV treatment
[2019-02-15] MEDS: ELVITEG/COB/EMTRI/TENOF (GENVOYA) TABLET (NF) PO SCH (10:21)
[2019-02-15] MEDS: PRENATAL VITAMINS W/ FOLIC ACID TABLET (FP) PO SCH (10:21)
[2019-02-15] MEDS: NICOTINE 14 MG/24 HOURS TOPICAL PATCH TD SCH (10:23)
[2019-02-15] MEDS: AMMONIUM LACTATE 12% LOTION 225 GM BOTTLE TP SCH ×2 (10:23→22:20)
[2019-02-15] MEDS: ALBUTEROL SO4 8 GM HFA INHALER IH PRN (11:29)
[2019-02-15] MEDS: THIAMINE HCL 100 MG TABLET (FP) PO SCH (22:20)
[2019-02-16] MEDS ORDERED: chlordiazePOXIDE HCL 10 MG CAPSULE PO PRN
[2019-02-16] MEDS: chlordiazePOXIDE HCL 10 MG CAPSULE PO SCH ×4 (06:20→22:06)
[2019-02-16] MEDS: MAG HYDROX/AL HYDROX/SIMETH 30 ML UNIT-DOSE CUP PO PRN (07:29)
[2019-02-16] MEDS: ATOVAQUONE 750 MG/5 ML (UNIT-DOSE PACKAGING) PO SCH ×3 (07:30→17:40)
--- NOTE | 2019-02-16 10:08 | PN ---
S CIWA - CIWA Score Nausea/Vomitin-No Nausea/No Vomiting Muscle Tremors: 2 Anxiety: 3 Agitation: 0-Normal Activity Paroxysmal Sweats: 3 Orientation: 0-Oriented Tacttile Disturbances: 0-None Auditory Disturbances: 0-None Visual Disturbances: 0-None Headache: 0-None Present CIWA-Ar Total Score: 8 BHS Progress Note (SOAP) Subjective: c/o mild shakes, sweats, and anxiety. Objective: 02/16/19 10:06 Vital Signs 02/16/19 02/16/19 06:35 09:24 Temperature 97.2 F L 96.2 F L Pulse Rate 110 H 63 Respiratory 18 18 Rate Blood Pressure 100/72 120/71 Lab Results WBC 4.7 K/mm3 (4.0-10.0) 02/13/19 14:00 RBC 3.81 M/mm3 (4.00-5.60) L 02/13/19 14:00 Hgb 10.4 GM/dL (11.7-16.9) L 02/13/19 14:00 Hct 32.1 % (35.4-49) L 02/13/19 14:00 MCV 84.2 fl (80-96) 02/13/19 14:00 MCHC 32.3 g/dl (32.0-35.9) 02/13/19 14:00 RDW 14.9 % (11.9-15.9) 02/13/19 14:00 Plt Count TNP 02/13/19 14:00 Sodium 141 mmol/L (136-145) 02/13/19 14:00 Potassium 3.6 mmol/L (3.5-5.1) 02/13/19 14:00 Chloride 109 mmol/L (98-107) H 02/13/19 14:00 Carbon Dioxide 25 mmol/L (21-32) 02/13/19 14:00 Anion Gap 7 MMOL/L (8-16) L 02/13/19 14:00 BUN 28.5 mg/dL (7-18) H 02/13/19 14:00 Creatinine 2.0 mg/dL (0.55-1.3) H 02/13/19 14:00 Random Glucose 97 mg/dL (74-106) 02/13/19 14:00 Calcium 8.1 mg/dL (8.5-10.1) L 02/13/19 14:00 Labs noted. Assessment: 02/16/19 10:06 AOX3, in no acute respiratory distress. Full ROM, ambulating in the unit with a wheelchair. Withdrawal symptoms. Plan: continue detox.
[2019-02-16] MEDS: PRENATAL VITAMINS W/ FOLIC ACID TABLET (FP) PO SCH (10:33)
[2019-02-16] MEDS: NICOTINE 14 MG/24 HOURS TOPICAL PATCH TD SCH (10:34)
[2019-02-16] MEDS: AMMONIUM LACTATE 12% LOTION 225 GM BOTTLE TP SCH ×2 (10:34→22:05)
[2019-02-16] MEDS: ELVITEG/COB/EMTRI/TENOF (GENVOYA) TABLET (NF) PO SCH (10:34)
[2019-02-16] MEDS: THIAMINE HCL 100 MG TABLET (FP) PO SCH (22:05)
[2019-02-16] MEDS: ALBUTEROL SO4 8 GM HFA INHALER IH PRN (22:06)
[2019-02-17] MEDS: MAG HYDROX/AL HYDROX/SIMETH 30 ML UNIT-DOSE CUP PO PRN (03:51)
[2019-02-17] MEDS: chlordiazePOXIDE HCL 10 MG CAPSULE PO SCH ×2 (06:05→17:41)
[2019-02-17] MEDS: ATOVAQUONE 750 MG/5 ML (UNIT-DOSE PACKAGING) PO SCH ×2 (07:50→17:41)
[2019-02-17] MEDS: PRENATAL VITAMINS W/ FOLIC ACID TABLET (FP) PO SCH (10:39)
[2019-02-17] MEDS: ELVITEG/COB/EMTRI/TENOF (GENVOYA) TABLET (NF) PO SCH (10:39)
[2019-02-17] MEDS: AMMONIUM LACTATE 12% LOTION 225 GM BOTTLE TP SCH ×2 (10:41→22:09)
[2019-02-17] MEDS: NICOTINE 14 MG/24 HOURS TOPICAL PATCH TD SCH (10:41)
--- NOTE | 2019-02-17 14:17 | PN ---
S CIWA - CIWA Score Nausea/Vomitin-No Nausea/No Vomiting Muscle Tremors: 1-None Visible, but [place] Anxiety: 3 Agitation: 0-Normal Activity Paroxysmal Sweats: No Perspiration Orientation: 0-Oriented Tacttile Disturbances: 0-None Auditory Disturbances: 0-None Visual Disturbances: 0-None Headache: 0-None Present CIWA-Ar Total Score: 4 BHS Progress Note (SOAP) Subjective: 53 years old male admitted on 02/13/19 for alcohol withdrawal sx management treating with librium detox regimen resting on bed limited conversation with staff strong recommend the patient to attend behavior and psychosocial therapies while in detox Objective: 02/17/19 14:16 Vital Signs Temperature 96.9 F L 02/17/19 13:31 Pulse Rate 85 02/17/19 13:31 Respiratory Rate 18 02/17/19 13:31 Blood Pressure 109/52 L 02/17/19 13:31 O2 Sat by Pulse Oximetry (%) Laboratory Last Values WBC 4.7 K/mm3 (4.0-10.0) 02/13/19 14:00 RBC 3.81 M/mm3 (4.00-5.60) L 02/13/19 14:00 Hgb 10.4 GM/dL (11.7-16.9) L 02/13/19 14:00 Hct 32.1 % (35.4-49) L 02/13/19 14:00 MCV 84.2 fl (80-96) 02/13/19 14:00 MCH 27.3 pg (25.7-33.7) 02/13/19 14:00 MCHC 32.3 g/dl (32.0-35.9) 02/13/19 14:00 RDW 14.9 % (11.9-15.9) 02/13/19 14:00 Plt Count TNP 02/13/19 14:00 MPV 9.5 fl (7.5-11.1) 02/13/19 14:00 Platelet Comment 02/13/19 14:00 Sodium 141 mmol/L (136-145) 02/13/19 14:00 Potassium 3.6 mmol/L (3.5-5.1) 02/13/19 14:00 Chloride 109 mmol/L (98-107) H 02/13/19 14:00 Carbon Dioxide 25 mmol/L (21-32) 02/13/19 14:00 Anion Gap 7 MMOL/L (8-16) L 02/13/19 14:00 BUN 28.5 mg/dL (7-18) H 02/13/19 14:00 Creatinine 2.0 mg/dL (0.55-1.3) H 02/13/19 14:00 Est GFR (CKD-EPI)AfAm 42.29 02/13/19 14:00 Est GFR (CKD-EPI)NonAf 36.49 02/13/19 14:00 Random Glucose 97 mg/dL (74-106) 02/13/19 14:00 Calcium 8.1 mg/dL (8.5-10.1) L 02/13/19 14:00 Total Bilirubin 0.1 mg/dL (0.2-1) L 02/13/19 14:00 AST 25 U/L (15-37) 02/13/19 14:00 ALT 17 U/L (13-61) 02/13/19 14:00 Alkaline Phosphatase 100 U/L (45-117) 02/13/19 14:00 Total Protein 9.3 g/dl (6.4-8.2) H 02/13/19 14:00 Albumin 3.3 g/dl (3.4-5.0) L 02/13/19 14:00 RPR Titer Nonreactive (NONREACTIVE) 02/13/19 14:00 lab noted 02/17/19 14:18 bun and creatinin elevation patient agrees to bringing in lab report to community primary health ID provider for follow up 02/17/19 14:18 Assessment: 02/17/19 14:19 alcohol withdrawal Plan: librium regimen
[2019-02-17] MEDS: THIAMINE HCL 100 MG TABLET (FP) PO SCH (22:09)
[2019-02-18] MEDS ORDERED: chlordiazePOXIDE HCL 10 MG CAPSULE PO ONE (05:00)
[2019-02-18] MEDS: MAG HYDROX/AL HYDROX/SIMETH 30 ML UNIT-DOSE CUP PO PRN (05:21)
[2019-02-18 06:35] VITALS: BP 110/67; PULSE 68; TEMP 97.6
--- NOTE | 2019-02-18 09:15 | DS ---
[facility] Detox Discharge Summary Admission Date: 02/13/19 Discharge Date: 02/18/19 - History Present History: Alcohol Dependence Additional Comments: 53 years old male admitted on 02.13.19 for alcohol withdrawal sx management treated with librium detox regimen completed librium regimen tolerated well alert oriented x 3 respiratory clear lungs bilaterally on auscultation skin warm and dry abdomen soft no rebound tenderness Pertinent Past History: patient may return to infectious disease primary care provider for follow up - Physical Exam Results Vital Signs: Vital Signs Temperature 97.6 F 02/18/19 06:31 Pulse Rate 68 02/18/19 06:31 Respiratory Rate 16 02/18/19 06:31 Blood Pressure 110/67 02/18/19 06:31 O2 Sat by Pulse Oximetry (%) Pertinent Admission Physical Exam Findings: alcohol withdrawal Laboratory Last Values WBC 4.7 K/mm3 (4.0-10.0) 02/13/19 14:00 RBC 3.81 M/mm3 (4.00-5.60) L 02/13/19 14:00 Hgb 10.4 GM/dL (11.7-16.9) L 02/13/19 14:00 Hct 32.1 % (35.4-49) L 02/13/19 14:00 MCV 84.2 fl (80-96) 02/13/19 14:00 MCH 27.3 pg (25.7-33.7) 02/13/19 14:00 MCHC 32.3 g/dl (32.0-35.9) 02/13/19 14:00 RDW 14.9 % (11.9-15.9) 02/13/19 14:00 Plt Count TNP 02/13/19 14:00 MPV 9.5 fl (7.5-11.1) 02/13/19 14:00 Platelet Comment 02/13/19 14:00 Sodium 141 mmol/L (136-145) 02/13/19 14:00 Potassium 3.6 mmol/L (3.5-5.1) 02/13/19 14:00 Chloride 109 mmol/L (98-107) H 02/13/19 14:00 Carbon Dioxide 25 mmol/L (21-32) 02/13/19 14:00 Anion Gap 7 MMOL/L (8-16) L 02/13/19 14:00 BUN 28.5 mg/dL (7-18) H 02/13/19 14:00 Creatinine 2.0 mg/dL (0.55-1.3) H 02/13/19 14:00 Est GFR (CKD-EPI)AfAm 42.29 02/13/19 14:00 Est GFR (CKD-EPI)NonAf 36.49 02/13/19 14:00 Random Glucose 97 mg/dL (74-106) 02/13/19 14:00 Calcium 8.1 mg/dL (8.5-10.1) L 02/13/19 14:00 Total Bilirubin 0.1 mg/dL (0.2-1) L 02/13/19 14:00 AST 25 U/L (15-37) 02/13/19 14:00 ALT 17 U/L (13-61) 02/13/19 14:00 Alkaline Phosphatase 100 U/L (45-117) 02/13/19 14:00 Total Protein 9.3 g/dl (6.4-8.2) H 02/13/19 14:00 Albumin 3.3 g/dl (3.4-5.0) L 02/13/19 14:00 RPR Titer Nonreactive (NONREACTIVE) 02/13/19 14:00 lab noted - Treatment Hospital Course: Detox Protocol Followed, Detoxed Safely, Responded well, Discharged Condition Good, Rehab Referral Accepted Patient has Accepted a Rehab Referral to: [facility] - Medication Discharge Medications: Ambulatory Orders Albuterol Sulfate Inhaler - [Ventolin HFA Inhaler -] 2 inh PO Q4H PRN 02/13/19 Ammonium Lactate Lotion [Lac-Hydrin 12] 1 applic TP ASDIR 02/13/19 Atovaquone [Mepron Oral Solution -] 750 mg PO BID 02/13/19 Elviteg/Cob/Emtri/Tenof Alafen [Genvoya Tablet] 1 each PO DAILY 02/13/19 Ibuprofen 800 mg PO TID PRN 02/13/19 Pregabalin [Lyrica -] 150 mg PO TID 02/13/19 - Diagnosis (1) Alcohol dependence with uncomplicated withdrawal Status: Acute (2) HIV (human immunodeficiency virus infection) Status: Chronic Qualifiers: HIV symptom status: asymptomatic Qualified Code(s): Z21 - Asymptomatic human immunodeficiency virus [HIV] infection status (3) Hearing loss of both ears Status: Chronic Qualifiers: Hearing loss type: sensorineural Qualified Code(s): H90.3 - Sensorineural hearing loss, bilateral (4) Nicotine dependence Status: Acute Qualifiers: Nicotine product type: cigarettes Substance use status: in withdrawal Qualified Code(s): F17.213 - Nicotine dependence, cigarettes, with withdrawal (5) Weight loss Status: Acute - AMA Did Patient Leave Against Medical Advice: No CIWA Score - CIWA Score Nausea/Vomitin-No Nausea/No Vomiting Muscle Tremors: None Anxiety: 2 Agitation: 0-Normal Activity Paroxysmal Sweats: No Perspiration Orientation: 0-Oriented Tacttile Disturbances: 0-None Auditory Disturbances: 0-None Visual Disturbances: 0-None Headache: 0-None Present CIWA-Ar Total Score: 2
== END 2019-02-18 08:37 | disposition home or self-care (01) | DRG 774 ==
LOC: YASAS 11:15 → Y3N 14:08
PROVIDERS: ADMIT Allergy & Immunology; ATTEND Allergy & Immunology
PROC: HZ2ZZZZ Detoxification Services for Substance Abuse Treatment (ICD-10-PCS; principal; 2019-02-13)
DX: F10.230 Alcohol dependence with withdrawal, uncomplicated (principal); F14.20 Cocaine dependence, uncomplicated; F17.213 Nicotine dependence, cigarettes, with withdrawal; F19.24 Other psychoactive substance dependence with psychoactive substance-induced mood disorder; F19.282 Other psychoactive substance dependence with psychoactive substance-induced sleep disorder; F31.81 Bipolar II disorder; Z21 Asymptomatic human immunodeficiency virus [HIV] infection status; H90.3 Sensorineural hearing loss, bilateral; D64.9 Anemia, unspecified; R63.4 Abnormal weight loss; R77.0 Abnormality of albumin; R94.4 Abnormal results of kidney function studies; Z87.438 Personal history of other diseases of male genital organs
CPT/HCPCS: 36415; 80053; 85027; 86593